=== PATIENT | female | born 1950 | race Caucasian/White ===

== ENCOUNTER 2017-02-27 06:54 | Inpatient (IN) | payer OTHER ==
[~2017-02-27] VITALS: Ht 170.2 cm; Wt 110.2 kg
[~2017-02-27 06:54] MED LIST: ALEVE220 MG PO; DITROPAN XL10 MG PO; FLEXERIL10 MG PO; GLUCOSAMINE1000 MG PO; HYDROCHLOROTHIA25 MG PO; IRBESARTAN150 MG PO; LOVASTATIN10 MG PO; METFORMIN HCL500 MG PO; PRILOSEC20 MG PO; PRIMIDONE PO; PRIMIDONE50 MG PO; PROBIOTIC1 EAC1 PO; PROZAC20 MG PO; SPIRONOLACTONE25 MG PO; SUPER B COMP1 TABLET PO; TRAMADOL HCL50 MG PO
[2017-02-27 07:34] VITALS: BP 110/58
[2017-02-27 08:00] VITALS: BP 110/58
[2017-02-27 08:02] LABS: POINT-OF-CARE METER ID UU14174212
[2017-02-27 14:13] LABS: POINT-OF-CARE METER ID UU13113675; POINT-OF-CARE USER ID 515036437
[2017-02-27 19:52] VITALS: BP 137/59
[2017-02-27 23:49] VITALS: BP 134/63
[2017-02-28 04:20] VITALS: BP 125/60
[2017-02-28 09:33] VITALS: BP 121/56
[2017-02-28 11:14] VITALS: BP 95/52
[2017-02-28 16:28] VITALS: BP 100/55
[2017-02-28 23:59] VITALS: BP 110/50
[2017-03-01 08:21] VITALS: BP 113/60
[2017-03-01 12:21] VITALS: BP 110/61
[2017-03-01 16:38] VITALS: BP 113/56
[2017-03-01 23:36] VITALS: BP 120/50
[2017-03-02 08:11] VITALS: BP 114/66
[2017-03-02] MEDS ORDERED: HYDROCODON-ACE1 EAC9 PO (09:00)
== END 2017-03-02 12:16 | disposition home or self-care (01) | DRG 460 ==
LOC: 3EAST 06:54 → 2SOUTH 06:54 → 3EAST 17:28
PROVIDERS: Neurological Surgery
DX: M47.9 Spondylosis, unspecified (principal); M54.16 Radiculopathy, lumbar region; R51 Headache; M79.605 Pain in left leg; M79.604 Pain in right leg; M54.9 Dorsalgia, unspecified; Z98.1 Arthrodesis status
CPT/HCPCS: 72100; 76000; 82948; 86900; 86901; J0330; J0690; J1100; J1170; J1580; J1885; J2250; J2405; J3010; J3370; J7040